=== PATIENT | female | born 1995 | race Caucasian/White ===

== ENCOUNTER 2024-04-22 08:48 | Emergency (ER) | payer BC, OTHER ==
[2024-04-22 08:55] VITALS: BP 109/71; PULSE 84; RESP 18; TEMP 97.8; BMI 23.2
[2024-04-22] MEDS ORDERED: ACETAMINOPHEN 325 MG TABLET (FP) ONE (09:30)
[2024-04-22] MEDS: ACETAMINOPHEN 500 MG TABLET (FP) PO ONE (09:34)
[2024-04-22] MEDS: SODIUM CHLORIDE 0.9% 500 ML INFUS.BAG IV ONE (09:35)
[2024-04-22 09:45] LABS: BASO % 0.7 % (0-2.0); EOS % 3.8 % (0-4.5); HEMATOCRIT 36.7 % (32.4-45.2); HEMOGLOBIN 11.8 GM/dL (10.7-15.3); LYMPH % 25.8 % (8-40); MCH 27.7 pg (25.7-33.7); MEAN CELL VOLUME 86.6 fl (80-96); MEAN PLT VOLUME 8.3 fl (7.5-11.1); MONO % 5.8 % (3.8-10.2); NEUT % 63.9 % (42.8-82.8); PLATELET COUNT 326 10^3/uL (134-434); RBC 4.24 M/mm3 (3.60-5.2); RDW 14.4 % (11.6-15.6); WHITE BLOOD COUNT 7.9 K/mm3 (4.0-10.0)
[2024-04-22 10:02] LABS: POTASSIUM 4.7 mmol/L (3.5-5.1)
[2024-04-22 10:03] LABS: CALCIUM 9.5 mg/dL (8.5-10.1)
[2024-04-22 10:04] LABS: ALBUMIN 4.3 g/dl (3.4-5.0); BLOOD UREA NITROGEN 8.1 mg/dL (7-18)
[2024-04-22 10:06] LABS: CREATININE 0.6 mg/dL (0.55-1.3)
[2024-04-22 10:08] LABS: HCG,QUALITATIVE URINE Positive
[2024-04-22 10:09] LABS: BILIRUBIN,TOTAL 0.8 mg/dL (0.2-1); TOT PROT 7.5 g/dl (6.4-8.2)
[2024-04-22 10:15] LABS: EPI CELLS 7 /uL (0-25.1); HYALINE CASTS 1 /uL (0-3.1); URINE APPEARANCE CLEAR; URINE BACTERIA 63 /uL (0-1359); URINE BILIRUBIN NEGATIVE (NEGATIVE); URINE COLOR YELLOW; URINE GLUCOSE (UA) NEGATIVE (NEGATIVE); URINE KETONE NEGATIVE (NEGATIVE); URINE LEUK ESTERASE NEGATIVE (NEGATIVE); URINE NITRITE NEGATIVE (NEGATIVE); URINE PROTEIN NEGATIVE (NEGATIVE); URINE RBC 4 /uL (0-23.9); URINE UROBILINOGEN 0.2 mg/dL (0.2-1.0); URINE WBC 3 /uL (0-25.8)
== END 2024-04-22 14:19 | disposition home or self-care (01) ==
LOC: JER 08:48
DX: O03.9 Complete or unspecified spontaneous abortion without complication (principal)
CPT/HCPCS: 36415; 76801-TC; 80053; 81003; 84702; 84703; 85025; 86850; 86900; 86901; 87086; 99284-25